=== PATIENT | male | born 1970 | race Caucasian/White ===

== ENCOUNTER 2024-02-01 14:09 | Emergency (ER) | payer SELFPAY ==
[2024-02-01] MEDS ORDERED: KETOROLAC 30 MG/ML INJ ONE (14:39)
[2024-02-01] MEDS ORDERED: NA CHLORIDE 0.9% 1,000 ML ONE (14:40)
[2024-02-01 14:44] LABS: Absolute Lymphocytes (CBC) 0.2 K/uL (0.7-4.9); Absolute Monocytes 0.6 K/uL (0.1-1.3); Absolute Neutrophil 3.6 K/uL (1.8-8.0); Basophils % 0.2 % (0-1.3); Eosinophils % 0.8 % (0-4.4); Hematocrit 45.6 % (39.6-49.0); Hemoglobin 15.7 g/dL (13.6-17.9); Lymphocytes % 5.4 % (15.3-44.8); MCH 34.8 pg (27.0-35.0); MCHC 34.4 g/dL (32.0-36.0); MCV 101.1 fL (80-100); MPV 9.1 fL (7.6-11.3); Monocytes % 13.7 % (3.3-12.3); Neutrophils % 79.9 % (41.7-73.7); Nucleated Red Blood Cells % 0.1 % (0-0); Platelets 140 thou/uL (152-406); RBC Red Blood Cell Count 4.51 M/uL (4.33-5.43); Red Cell Distribution Width 13.2 % (12.1-15.2)
[2024-02-01 14:59] LABS: SARS-CoV-2 Antigen CONTROL BLUE LINE VIS/BG OK; SARS-CoV-2 Antigen Rapid Res Positive (Negative)
[2024-02-01 15:03] LABS: Anion Gap 9.1 mEq/L (5.0-15.0); Bilirubin Total 0.6 mg/dL (0.2-1.0); Potassium 4.1 mEq/L (3.5-5.1)
--- NOTE | 2024-02-01 16:08 | ER ---
Nurse's Notes [facility] Name: Demarco Lu Age: 53 yrs Sex: Male : 1970 Arrival Date: 02/01/2024 Time: 14:09 Bed 7 Private MD: Diagnosis: SARS-associated coronavirus as the cause of diseases classified elsewhere Presentation: 01/31 14:12 Ebola Screen: Patient denies travel to an Ebola-affected area in the 21 days before ll1 illness onset. Initial Sepsis Screen: Does the patient meet any 2 criteria? No. Patient's initial sepsis screen is negative. Does the patient have a suspected source of infection? No. Patient's initial sepsis screen is negative. Risk Assessment: Do you want to hurt yourself or someone else? Patient reports no desire to harm self or others. 14:12 Method Of Arrival: Ambulatory ll1 14:17 Chief complaint: Patient states: Pain all over since Monday. States its a lyme disease ll1 flare up. Coronavirus screen: Client denies travel out of the [place] in the last 14 days. At this time, the client does not indicate any symptoms associated with coronavirus-19. Onset of symptoms was January 30, 2024. 14:17 Acuity: MIKEL 3 ll1 Triage Assessment: 14:20 General: Appears distressed, uncomfortable, Behavior is cooperative, appropriate for ll1 age, anxious, restless. General: Reports not sleeping well, stress. Pain: Complains of pain in all over Quality of pain is described as aching. Neuro: No deficits noted. Musculoskeletal: Reports pain all over. Historical: - Allergies: 14:16 No Known Allergies; ll1 - PMHx: 14:16 Diabetes mellitus; lyme disease; ll1 - PSHx: 14:16 None; ll1 - Immunization history:: Adult Immunizations up to date. Screenin:30 [facility] ED Fall Risk Assessment (Adult) History of falling in the last 3 months, aa5 including since admission No falls in past 3 months (0 pts) Confusion or Disorientation No (0 pts) Intoxicated or Sedated No (0 pts) Impaired Gait No (0 pts) Mobility Assist Device Used No (0 pt) Altered Elimination No (0 pt) Score/Fall Risk Level 0 - 2 = Low Risk Oriented to surroundings, Maintained a safe environment, Educated pt \T\ family on fall prevention, incl call for assistance when getting out of bed. Abuse screen: Denies threats or abuse. Nutritional screening: No deficits noted. Tuberculosis screening: No symptoms or risk factors identified. Assessment: 14:30 General: Appears uncomfortable, Behavior is calm, cooperative. Pain: Complains of pain aa5 in whole body, pt reports main pain is to bella legs, bella shoulders, and back. Pain currently is 10 out of 10 on a pain scale. Quality of pain is described as burning, aching, Is continuous, Aggravated by increased activity. Neuro: Level of Consciousness is awake, alert, obeys commands, Oriented to person, place, time, situation. Cardiovascular: Patient's skin is warm and dry. Respiratory: Airway is patent Respiratory effort is even, unlabored, Respiratory pattern is regular, symmetrical. GI: No signs and/or symptoms were reported involving the gastrointestinal system. : No signs and/or symptoms were reported regarding the genitourinary system. EENT: No signs and/or symptoms were reported regarding the EENT system. Derm: Skin is pink, warm \T\ dry. Musculoskeletal: Range of motion: intact in all extremities. 16:25 Reassessment: Patient is alert, oriented x 3, equal unlabored respirations, skin aa5 warm/dry/pink. Vital Signs: 14:17 BP 148 / 77; Pulse 98; Resp 18; Temp 97.5; Pulse Ox 98% ; Pain 10/10; ll1 16:25 BP 140 / 75; Pulse 88; Resp 16 S; Pulse Ox 98% on R/A; aa5 14:17 Pain Scale: Adult ll1 ED Course: 14:11 Patient arrived in ED. ll1 14:12 Libra Belle PA-C is PHCP. sb4 14:12 Sundeep Ramirez DO is Attending Physician. sb4 14:12 Arm band placed on Patient placed in an exam room, on a stretcher. ll1 14:18 Triage completed. ll1 14:22 Yvette Macdonald, RN is Primary Nurse. aa5 14:30 Patient has correct armband on for positive identification. Placed in gown. Bed in low aa5 position. Call light in reach. Side rails up X 1. Pulse ox on. NIBP on. 14:40 Initial lab(s) drawn, by me, sent to lab. Inserted saline lock: 20 gauge in right aa5 antecubital area, using aseptic technique. Blood collected. Flushed with 10 mL NS. 14:44 COVID swab sent to lab. Flu and/or RSV swab sent to lab. aa5 16:25 IV discontinued, intact, bleeding controlled, No redness/swelling at site. Pressure aa5 dressing applied. 16:25 No provider procedures requiring assistance completed. aa5 Administered Medications: 14:42 Drug: NS 0.9% IV 1000 ml IV at 1 bolus Per protocol; 1000 mL bolus Route: IV; Rate: 1 aa5 bolus; Site: right antecubital; 16:25 Follow up: IV Status: Completed infusion; IV Intake: 1000ml aa5 14:42 Drug: TORadol - Ketorolac IVP 15 mg IVP once Route: IVP; Site: right antecubital; aa5 14:50 Follow up: Response: No adverse reaction aa5 Medication: 14:50 VIS not applicable for this client. aa5 Intake: 16:25 IV: 1000ml; Total: 1000ml. aa5 Outcome: 16:07 Discharge ordered by . sb4 16:25 Discharged to home ambulatory, with significant other, aa5 16:25 Condition: stable 16:25 Discharge instructions given to patient, Instructed on discharge instructions, follow up and referral plans. Demonstrated understanding of instructions, follow-up care, 16:31 Patient left the ED. ll1 Signatures: Yvette Macdonald RN RN aa5 Suresh Reese RN RN ll1 Libra Belle, PAHosea PAHosea sb4
--- NOTE | 2024-02-01 16:08 | EDPHYS ---
Physician Documentation [facility] Name: Demarco Lu Age: 53 yrs Sex: Male : 1970 Arrival Date: 02/01/2024 Time: 14:09 Bed 7 Private MD: ED Physician Sundeep Ramirez HPI: 01/31 14:31 This 53 yrs old Male presents to ER via Ambulatory with complaints of Pain All Over. sb4 14:31 patient reports pain in all of his joints for the past few days. 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 he believes he may be having a "lyme disease flare up" as he was diagnosed about 2 years ago. he states he has been drinking plenty of water, is urinating normally, has no leg swelling. he denies any chest pain or shortness of breath. Historical: - Allergies: 14:16 No Known Allergies; ll1 - PMHx: 14:16 Diabetes mellitus; lyme disease; ll1 - PSHx: 14:16 None; ll1 - Immunization history:: Adult Immunizations up to date. ROS: 14:32 Cardiovascular: Negative for chest pain, palpitations, and edema, sb4 14:32 Constitutional: Positive for body aches, 14:32 All other systems are negative, Exam: 14:32 Constitutional: This is a well developed, well nourished patient who is awake, alert, sb4 and in no acute distress. Head/Face: Normocephalic, atraumatic. Eyes: Extra-ocular motions intact. Periorbital areas with no swelling, redness, or edema. ENT: Mucous membranes moist. Cardiovascular: Regular rate and rhythm with a normal S1 and S2. Respiratory: Lungs have equal breath sounds bilaterally, clear to auscultation and percussion. No rales, rhonchi or wheezes noted. No increased work of breathing, no retractions or nasal flaring. Abdomen/GI: Soft, non-tender, no distension. Skin: Warm, dry with normal turgor. Normal color with no rashes, no lesions, and no evidence of cellulitis. Vital Signs: 14:17 BP 148 / 77; Pulse 98; Resp 18; Temp 97.5; Pulse Ox 98% ; Pain 10/10; ll1 16:25 BP 140 / 75; Pulse 88; Resp 16 S; Pulse Ox 98% on R/A; aa5 14:17 Pain Scale: Adult ll1 MDM: 14:13 Patient medically screened. sb4 16:06 Data reviewed: vital signs, nurses notes, lab test result(s), and as a result, I will sb4 discharge patient. Historians other than the Patient: Spouse/Significant Other: . Counseling: I had a detailed discussion with the patient and/or guardian regarding the historical points, exam findings, and any diagnostic results supporting the discharge/admit diagnosis, lab results, to return to the emergency department if symptoms worsen or persist or if there are any questions or concerns that arise at home. 01/31 14:24 Order name: CBC with Diff; Complete Time: 14:50 sb4 01/31 14:24 Order name: CMP; Complete Time: 15:04 sb4 01/31 14:24 Order name: CK; Complete Time: 15:04 sb4 01/31 14:24 Order name: SARS RAPID; Complete Time: 15:01 sb4 01/31 14:24 Order name: Flu; Complete Time: 15:04 sb4 01/31 14:32 Order name: CRP; Complete Time: 15:10 sb4 01/31 14:24 Order name: IV Saline Lock; Complete Time: 14:49 sb4 01/31 14:24 Order name: Labs collected and sent; Complete Time: 14:49 sb4 Administered Medications: 14:42 Drug: NS 0.9% IV 1000 ml IV at 1 bolus Per protocol; 1000 mL bolus Route: IV; Rate: 1 aa5 bolus; Site: right antecubital; 16:25 Follow up: IV Status: Completed infusion; IV Intake: 1000ml aa5 14:42 Drug: TORadol - Ketorolac IVP 15 mg IVP once Route: IVP; Site: right antecubital; aa5 14:50 Follow up: Response: No adverse reaction aa5 Disposition: 15:05 I was immediately available on-site in the Emergency Department for consultation in the ms3 care of the patient. Disposition Summary: 02/01/24 16:07 Discharge Ordered Notes: Location: Home sb4 Problem: an ongoing problem sb4 Symptoms: have improved sb4 Condition: Stable sb4 Diagnosis - SARS-associated coronavirus as the cause of diseases classified elsewhere sb4 Followup: sb4 - With: Private Physician - When: 1 week - Reason: Recheck today's complaints, Re-evaluation by your physician Discharge Instructions: - Discharge Summary Sheet sb4 - Lyme Disease sb4 - 10 Things You Can Do to Manage Your COVID-19 Symptoms at Home - [facility] (11/13/2020) sb4 - COVID-19: What to Do If You Are Sick - [facility] (07/20/2021) sb4 Forms: - Patient Portal Instructions sb4 - Leadership Thank You Letter sb4 Signatures: Dispatcher [employer] EDYvette Fernandez, RN RN aa5 Suresh Reese RN RN ll1 Sundeep Ramirez DO DO ms3 Libra Belle PA-C PAHosea sb4 Corrections: (The following items were deleted from the chart) 14:32 14:32 C-REACTIVE PROTEIN+C.LAB.BRZ ordered. EDMS EDMS 14:33 14:31 patient reports pain in all of his joints for the past. sb4 sb4
[2024-02-02 05:09] VITALS: BP 148/77; TEMP 97.5; O2SAT 98
== END 2024-02-01 16:31 | disposition home or self-care (01) ==
LOC: ER 14:09
DX: U07.1 COVID-19 (principal)
CPT/HCPCS: 36415; 80053; 82550; 85025; 86140; 87804; 87811; 96361; 96374; 99284; J7030